=== PATIENT | male | born 1965 | race Caucasian/White ===

== ENCOUNTER → 2024-10-04 | Outpatient (CLI) | payer OTHER, SELFPAY ==
[2024-10-04 11:07] LABS: Absolute Lymphocyte Count 1.75 X10^3/uL (0.83-4.51); Absolute Neutrophil Count 2.8 X10^3/uL (2.0-7.7); Basophil# 0.03 X10^3/uL; Basophil% 0.6 % (0-1); Eosinophil# 0.14 X10^3/uL; Eosinophils% 2.7 % (0-5); Lymphocyte # 1.75 X10^3/ul (0.83-4.51); Lymphocyte % 33.1 % (19-41); Mean Corp Hgb Conc 34.1 g/dL (32-36); Mean Corpuscular Hgb 30.4 pg (27.0-32.0); Mean Corpuscular Volume 89.2 fL (80-94); Mean Platelet Vol. 11.1 fl (6.2-12.0); Monocyte# 0.54 X10^3/uL; Monocyte% 10.2 % (0-10); NRBC Flagged by Analyzer 0 % (0-5); Neutrophil # 2.81 X10^3/uL (2.7-7.7); Neutrophil % 53.2 % (47-70); Platelet Count 176 K/mm3 (150-450); RBC Distribution Width CV 13.3 % (11.6-14.6); RBC Distribution Width SD 43.9 fl (35.1-43.9); RET-HE 33.2 pg (30-35); Red Blood Count 4.93 M/mm3 (4.6-6.2); Reticulocyte Count 1.11 % (0.5-1.5); White Blood Count 5.3 K/mm3 (4.4-11.0)
[2024-10-04 16:53] LABS: Cholesterol 172 mg/dL (<=200); High Density Lipoprotein 57 mg/dL; Low Density Lipoprotein Calc. 102 mg/dL; Triglycerides 64 mg/dL; Very Low Density Lipoprotein 13 mg/dL (5-40); Vitamin D,25 Hydroxy 32.7 ng/mL (30-100); cholesterol:hdl ratio screen 3.01
[2024-10-04 17:59] LABS: ALB/GLOB Ratio 1.7 RATIO (0.9-2.4); AST(SGOT) 28 U/L (<=37); Alanine Aminotransfer ALT/SGPT 26 U/L (<=46); Albumin, Serum 4.4 g/dL (3.4-4.8); Alkaline Phosphatase 67 U/L (40-129); Anion Gap 12 (5-15); BUN 15 mg/dL (4-19); BUN/Creat Ratio 16.5 RATIO (10-20); Calcium,Total 9.2 mg/dL (7.6-11.0); Carbon Dioxide 23.2 mmol/L (21.0-32.0); Chloride 104 mmol/L (98-108); Creatinine, Serum 0.93 mg/dL (0.70-1.20); EST Glomerular Filtration Rate 94 (>60); Globulin 2.6 g/dL (2.2-4.2); Glucose 127 mg/dL (70-99); Potassium 4.6 mmol/L (3.3-5.1); Sodium Level 139 mmol/L (133-145); Total Bilirubin 0.41 mg/dL (0.00-1.30)
[2024-10-05 06:56] LABS: Microalbumin,Random Urine < 12.0 mg/L (NO RANGE EST.)
[2024-10-05 06:57] LABS: Microalbumin:Creatinine Ratio UNABLE TO CALCULATE mg/g CRE
== END | disposition home or self-care (01) ==
LOC: LAB 09:53
PROVIDERS: PCP Specialist; Referring Provider Specialist; Visit Provider Specialist
DX: E78.5 Hyperlipidemia, unspecified (principal); E11.8 Type 2 diabetes mellitus with unspecified complications; R20.2 Paresthesia of skin; R35.1 Nocturia; I10 Essential (primary) hypertension; R63.4 Abnormal weight loss; Z12.10 Encounter for screening for malignant neoplasm of intestinal tract, unspecified
CPT/HCPCS: 36415; 80053; 80061; 82043; 82306; 82570; 83036; 84156; 84443; 85025; 85045

== ENCOUNTER → 2025-06-06 | Outpatient (CLI) | payer OTHER, SELFPAY ==
[2025-06-06 12:04] LABS: Microalbumin,Random Urine 33.5 mg/L (<20 mg/L)
[2025-06-06 12:21] LABS: AST(SGOT) 25 U/L (<=37); Alanine Aminotransfer ALT/SGPT 29 U/L (<=46); Albumin, Serum 4.2 g/dL (3.4-4.8); Alkaline Phosphatase 54 U/L (40-129); Anion Gap 8 (5-15); BUN 17 mg/dL (4-19); BUN/Creat Ratio 17.9 RATIO (10-20); Calcium,Total 9.1 mg/dL (7.6-11.0); Carbon Dioxide 27.7 mmol/L (21.0-32.0); Chloride 104 mmol/L (98-108); Globulin 2.7 g/dL (2.2-4.2); Glucose 173 mg/dL (70-99); Potassium 4.8 mmol/L (3.3-5.1); Vitamin D,25 Hydroxy 35.7 ng/mL (30-100)
== END | disposition home or self-care (01) ==
LOC: LAB 10:23
PROVIDERS: PCP Specialist; Referring Provider Specialist; Visit Provider Specialist
DX: E11.9 Type 2 diabetes mellitus without complications (principal); E55.9 Vitamin D deficiency, unspecified; R20.2 Paresthesia of skin
CPT/HCPCS: 36415; 80053; 82043; 82306; 83036